=== PATIENT | female | born 1955 | race Caucasian/White ===

== ENCOUNTER 2017-09-24 18:15 | Observation (INO) | payer BC, OTHER ==
[~2017-09-24 18:15] MED LIST: ISOVUE-370 76%-LOCM 1 ML ONE
[2017-09-24 19:08] LABS: Prothrombin Time 13.7 SEC (12.0-14.7)
[2017-09-24 19:18] LABS: #Eosinphils 0.1 thou/uL (0.0-0.7); #Lymphocytes 2.2 thou/uL (1.20-3.40); #Monocytes 0.7 thou/uL (0.11-0.59); #Neutrophils 4.7 thou/uL (1.40-6.50); %Basophils 0.2 % (0.0-1.0); %Eosinophils 1.2 % (0.0-10.0); %Lymphocytes 28.4 % (21.0-51.0); Hematocrit 38.2 % (36.0-47.0); Mean Platelet Volume 9.6 fL (7.4-10.4); Neutrophil 59 % (42-75); Reactive Lymphocytes 9 % (0-10); Red Blood Cell (RBC) Count 4.32 mill/uL (4.20-5.40); White Blood Cell (WBC) Count 7.7 thou/uL (4.8-10.8)
[2017-09-24 19:22] LABS: ALT (SGPT) 14 U/L (8-55); AST (SGOT) 16 U/L (5-34); Alkaline Phosphatase 58 U/L (40-150); Anion Gap 11 mmol/L (10-20); BUN (Urea Nitrogen) 16 mg/dL (9.8-20.1); Bilirubin, Total 0.5 mg/dL (0.2-1.2); Calc. Creatinine Clearance 0 mL/min (70-130); Calcium 9.1 mg/dL (7.8-10.44); Carbon Dioxide 27 mmol/L (23-31); Chloride 107 mmol/L (98-107); Estimated GFR-MDRD 36; Globulin 2.5 g/dL (2.4-3.5); Magnesium 2.2 mg/dL (1.6-2.6); Protein, Total 6.5 g/dL (6.0-8.3)
[2017-09-24 19:27] LABS: Troponin I Less than 0.010 ng/mL (< 0.028)
--- NOTE | 2017-09-24 19:46 | RAD ---
CHEST ONE VIEW: History: Syncope. Comparison: 03-19-13 FINDINGS: The cardiac silhouette is magnified by projection. Pulmonary vasculature is unremarkable. Mediastinum is midline with aortic calcification. There is no lobar consolidation or evidence of pneumothorax. C ardiac monitor leads overlie the chest. IMPRESSION: No active cardiopulmonary abnormalities are demonstrated. POS: [facility]
[2017-09-24 19:48] LABS: Bilirubin Negative (Negative); Blood, Urine Negative (Negative); Glucose, Urine (Dipstick) Negative (Negative); Ketone, Urine Negative (Negative); Nitrite Negative (Negative); Protein, Urine (Dipstick) Negative (Neg-Trace); Urobilinogen 0.2 mg/dL (0.2-1.0)
[2017-09-24 19:50] LABS: Bacteria/HPF Rare-Few HPF (None Seen); Hyaline Casts/LPF 0-3 HYALINE CAST LPF (0-3 Hyaline); RBC/HPF 0-3 HPF (0-3); Squamous Epithelial 0-3 HPF (0-3)
--- NOTE | 2017-09-24 20:05 | CT ---
CT HEAD NONCONTRAST CT ARTERIOGRAM NECK WITH IV CONTRAST AND 3D MIP IMAGING CT ARTERIOGRAM HEAD WITH IV CONTRAST AND 3D MIP IMAGING: History: Left sided sensory defect. Altered mental status. FINDINGS: There is normal branching of the great vessels at the aortic arch with calcification most pronounced at the left subclavian artery. There is mild plaque and calcification at each carotid bifurcation wit hout significant stenosis evident. Good flow is demonstrated into each vertebral artery and each flores tid system. There is no evidence of acute intracranial hemorrhage or infarct. The ventricles appear normal in siz e, shape, and position. There is no mass effect, shift of midline structures or abnormal areas of con trast enhancement. [place] is intact. No vascular filling defects are apparent. IMPRESSION: 1. No acute intracranial abnormalities are demonstrated. 2. Atherosclerosis without significant stenosis evident. POS: [facility]
[2017-09-24] MEDS ORDERED: cefTRIAXone\\ROCEPHIN 2 GM in Sodium Chloride 0.9% 100 ML IVPB SCH (20:30)
[2017-09-24] MEDS ORDERED: Acetaminophen 325 MG TAB PO PRN (21:57)
[2017-09-24] MEDS ORDERED: Acetaminophen 650 MG Suppository PR PRN (21:57)
[2017-09-24] MEDS ORDERED: Zolpidem Tartrate 5 MG TAB PO PRN (21:57)
[2017-09-24] MEDS ORDERED: Ondansetron HCl/PF 4 MG/2 ML Vial IVP PRN (21:57)
[2017-09-24] MEDS ORDERED: Sodium Chloride 0.9% 1,000 ML IV SCH (22:00)
[2017-09-24 22:33] LABS: Troponin I Less than 0.010 ng/mL (< 0.028)
--- NOTE | 2017-09-24 23:43 | HP ---
PRIMARY CARE PHYSICIAN: Dr. Ramírez at [facility]. CHIEF COMPLAINT: Passing out. HISTORY OF PRESENT ILLNESS: Ms. Escobar is a pleasant 62-year-old lady who was seen at [facility] on 09/24/2017. She reportedly had about 20 guests for Thanksgiving today. At so me point during the dinner, she was standing up and she felt that the whole room tilted to one side. She also reportedly passed out. She did not fall down or hit her head because her guests prevented her from falling. She also reports pain under the left scapula, 7/10, nonradiating, no known aggrava ting or relieving factors, not accompanied by nausea or vomiting, which lasted 2 hours. There has be en no recurrence of that pain. She reports left-sided numbness, including the face, still continues to have it. She also reports in termittent occipital headache. Her blood sugars were checked and were found to be 180 range. REVIEW OF SYSTEMS: The following complete review of systems was negative, unless otherwise mentioned in the HPI or below: Constitutional: Weight loss or gain, sense of well-being, ability to conduct usual activities, exerc ise tolerance. Skin/Breast: Rash, itching, changes in hair growth or loss, nail changes, breast lumps, tenderness, swelling, nipple discharge. Eyes: Vision, double vision, tearing, blind spots, pain. ENT/Mouth: Headaches (location, time of onset, duration, precipitating factors), vertigo, lightheade dness, injury. Vision, double vision, tearing, blind spots, pain, nose bleeding, colds, obstruction, discharge, dental difficulties, gingival bleeding, dentures, neck stiffness, pain, tenderness, masses in thyroid or other areas. Cardiovascular: Precordial pain, substernal distress, palpitations, syncope, dyspnea on exertion, or thopnea, nocturnal paroxysmal dyspnea, edema, cyanosis, hypertension, heart murmurs, varicosities, ph lebitis, claudication. Respiratory: Pain, shortness of breath, wheezing, stridor, cough, hemoptysis, fever or night sweats. Gastrointestinal: Poor appetite, dysphagia, indigestion, abdominal pain, heartburn, eructation, naus ea, vomiting, hematemesis, jaundice, constipation, or diarrhea, abnormal stools ([place]ent[place]-colored, tarry, bloody, greasy, foul smelling), flatulence, hemorrhoids, recent changes in bowel habits. Genitourinary: Urgency, frequency, dysuria, nocturia, hematuria, polyuria, oliguria, unusual (or guera nge in) color of urine, stones, hesitancy, change in size of stream, dribbling, acute retention or in continence, libido, potency. Musculoskeletal: Pain, swelling, redness or heat of muscles or joints, limitation, of motion, muscul ar weakness, atrophy, cramps. Neurologic/Psychiatric: Convulsions, paralyses, tremor, incoordination, paresthesias, difficulties w ith memory of speech, sensory or motor disturbances, or muscular coordination (ataxia, tremor), emoti onal problems, anxiety, depression, previous psychiatric care, unusual perceptions, hallucinations. Allergy/Immunologic: Skin rash, anemia, bleeding tendency, polydipsia, polyuria, intolerance to heat or cold. PAST MEDICAL HISTORY: Significant for hypothyroidism, anemia, asthma, dyslipidemia. PAST SURGICAL HISTORY: Significant for cholecystectomy, section, hysterectomy, and tonsille ctomy. PSYCHIATRIC HISTORY: Significant for depression and suicidal ideation after of parents. SOCIAL HISTORY: Occasional alcohol use, no tobacco use or recreational drug use. FAMILY HISTORY: Significant for stroke in her father. ALLERGIES: She is allergic to CODEINE and SULFA. CURRENT MEDICATIONS: Include trazodone 300 mg every evening, Symbicort 1 puff as needed, meloxicam 7 .5 mg daily, simvastatin 40 mg daily, levothyroxine 88 mcg daily, montelukast 10 mg daily, and Xanax as needed. PHYSICAL EXAMINATION: GENERAL: On examination, Ms. Escobar is awake and alert, not in acute distress. VITAL SIGNS: Blood pressure is 142/60, pulse is 70. She is breathing at rate of 17 and saturating 9 7% on room air. She is afebrile. EYES: No scleral icterus, no conjunctival pallor. ENT: Moist mucosal membranes, no oropharyngeal erythema or exudates. NECK: Supple, nontender, normal range of movement, trachea is midline. RESPIRATORY: Accessory muscles of breathing are not active. Chest wall movements are symmetric bila terally. LUNGS: Clear to auscultation without wheeze, rhonchi or crepitations. CARDIOVASCULAR: S1 and S2 are heard, regular. LUNGS: Peripheral pulses are palpable. No carotid bruit, no pericardial rub. ABDOMEN: Soft, nontender, bowel sounds heard, no hepatomegaly, no splenomegaly. NEUROLOGICAL: Diminished sensation over the left side of her face. Cranial nerves II-XII are otherw ise intact. Power is 5/5 in all 4 extremities. Deep tendon reflexes are 2+, plantar reflexes are do wngoing. MUSCULOSKELETAL: Power is 5/5 in all 4 extremities. Normal range of movement at all major extremity joints. PSYCHIATRIC: Normal mood, normal affect, patient is oriented to person, place and time. LYMPHATIC: No cervical lymphadenopathy. SKIN: No rashes or subcutaneous nodules. LABORATORY DATA: Ms. Escobar's labs and investigations were reviewed. I reviewed her electrocardiogr am, which shows normal sinus rhythm, no ST changes to suggest an acute coronary syndrome. I also rev iewed her chest x-ray, which does not show any pulmonary infiltrates. CT angiogram of the head and n barb did not reveal any acute intracranial abnormalities. She has atherosclerosis without significant stenosis. Laboratory investigation showed an unremarkable CBC, normal INR, normal D-dimer, elevated creatinine of 1.48, last known creatinine 1.29 in 03/2013, otherwise normal comprehensive metabolic profile, normal troponin I and normal TSH. Urinalysis is negative for nitrites, but positive for mod erate amount of leukocyte esterase. ASSESSMENT AND PLAN: Ms. Escobar is a pleasant 62-year-old lady who was seen at [facility] on 09/24/2017. Her problem list includes: 1. Syncope: Etiology unclear. We will admit patient to the hospital for further workup. Cardiolog y service will be consulted for their opinion and management, given the possibility of arrhythmia. N eurology service will be consulted as well. 2. Transient ischemic attack: Suspected. The patient continues to have left-sided facial numbness. We will check MRI of the brain as well as 2D echocardiogram. We will continue her on statin. She has received aspirin in the emergency room, which I will continue. 3. Urinary tract infection: Suspected, based on urinalysis. We will continue her on ceftriaxone fo r now. 4. Hypothyroidism: Continue Synthroid. 5. Asthma: Stable, continue her home medications. 6. Dyslipidemia: Continue statins. 7. Left scapular pain: Has resolved, etiology unclear. We will recheck troponin to ensure it does not have atypical presentation of acute coronary syndrome. 8. Chronic kidney disease: Monitor creatinine and electrolytes, hydrate patient for now. Many thanks for allowing me to participate in your patient's care. Please feel free to contact me wi th any questions or concerns. LEVEL OF RISK: High. LEVEL OF COMPLEXITY: High.
[2017-09-24 23:50] VITALS: BMI 30.4
[2017-09-25] MEDS ORDERED: cefTRIAXone\\ROCEPHIN 1 GM, Syringe 0.4 ML in Sterile Water 9.6 ML SLOW IVP SCH ×2 (01:00→22:00)
[2017-09-25 02:03] LABS: Troponin I Less than 0.010 ng/mL (< 0.028)
[2017-09-25 05:25] LABS: #Eosinphils 0.1 thou/uL (0.0-0.7); #Lymphocytes 2.3 thou/uL (1.20-3.40); #Monocytes 0.5 thou/uL (0.11-0.59); #Neutrophils 2.7 thou/uL (1.40-6.50); %Basophils 0.5 % (0.0-1.0); %Eosinophils 2.1 % (0.0-10.0); %Lymphocytes 40.4 % (21.0-51.0); %Monocytes 9.5 % (0.0-10.0); Hematocrit 34.3 % (36.0-47.0); Mean Platelet Volume 9.7 fL (7.4-10.4); Red Blood Cell (RBC) Count 3.85 mill/uL (4.20-5.40); White Blood Cell (WBC) Count 5.7 thou/uL (4.8-10.8)
[2017-09-25] MEDS: Levothyroxine Sodium 88 MCG TAB PO SCH (05:38)
[2017-09-25 05:54] LABS: Anion Gap 10 mmol/L (10-20); BUN (Urea Nitrogen) 15 mg/dL (9.8-20.1); Calc. Creatinine Clearance 61 mL/min (70-130); Calcium 8.3 mg/dL (7.8-10.44); Carbon Dioxide 22 mmol/L (23-31); Chloride 112 mmol/L (98-107); Cholesterol 122 mg/dl (< 200 Desired); Estimated GFR-MDRD 43; LDL Cholesterol, Calculated 63 mg/dL
[2017-09-25] MEDS ORDERED: Enoxaparin Sodium 40 MG/0.4 ML SYRINGE SC SCH (09:00)
[2017-09-25] MEDS ORDERED: Aspirin 325 mg Enteric Coated Tablet PO SCH (09:00)
--- NOTE | 2017-09-25 09:37 | PDOC.PN ---
- Subjective Encounter Start Date: 09/25/17 Encounter Start Time: 09:35 Patient seen at bedside. No overnight events, still having mild left sided facial numbness. - Objective MAR Reviewed: Yes Vital Signs & Weight: Vital Signs (12 hours) Temp Pulse Resp BP BP Pulse Ox 09/25/17 08:27 168/94 H 09/25/17 07:30 97.7 F 67 16 188/104 H 98 09/25/17 03:42 97.8 F 68 20 139/93 H 98 09/24/17 22:52 97.8 F 68 20 162/82 H 97 09/24/17 21:57 97 Weight Weight 188 lb 9.6 oz Result Diagrams: 09/25/17 04:37 09/25/17 04:37 Phys Exam - Physical Examination Constitutional: NAD HEENT: moist MMs Neck: no JVD Respiratory: clear to auscultation bilateral Cardiovascular: RRR Gastrointestinal: soft Musculoskeletal: pulses present, edema present Neurological: moves all 4 limbs decreased left facial sensitivity Psychiatric: A&O x 3 Dx/Plan (1) Transient ischemic attack (TIA) Status: Suspected (2) Hyperlipidemia Code(s): E78.5 - HYPERLIPIDEMIA, UNSPECIFIED Status: Chronic (3) Hypothyroidism Code(s): E03.9 - HYPOTHYROIDISM, UNSPECIFIED Status: Chronic (4) UTI (urinary tract infection) Status: Suspected - Plan cont current plan of care, plan discussed w/ family, continue antibiotics, DVT proph w/SCDs * Continue with ASA (spoke with Dr. Ortez who stated to continue 81mg daily). * Statin * D/C IV Fluids * Rocephin * MRI/Echo * Cardiology consult pending (arrthymogenic?)
--- NOTE | 2017-09-25 09:55 | CON ---
DATE OF CONSULTATION: 09/25/2017 CONSULTING PHYSICIAN: Hospitalist Service IMPRESSION: 1. Probable vertebrobasilar transient ischemic. 2. Hypertension. PLAN: 1. Add aspirin. 2. Continue simvastatin. 3. Echocardiogram. Ms. Escobar is a 62-year-old white female who was at home having Thanksgiving dinner when she suddenly felt like the world was pulling her to the side. She collapsed to the floor and had a brief loss of consciousness. When she awoke, she had some continued sensation of vertigo. She noted that there w as some numbness involving the left face, arm, and leg. She was helped to a chair and subsequently b rought to the emergency room. Her initial CT scan of the brain did not reveal any evidence of hemorr monica. She has been admitted for further evaluation. Her CT angiogram of the [place] did no t reveal any significant areas of stenosis. She denies any past history of similar events. PAST MEDICAL HISTORY: Hypertension, hyperlipidemia. ALLERGIES: CODEINE, MORPHINE, SULFA. MEDICATIONS: Reviewed. SOCIAL HISTORY: No tobacco use. FAMILY HISTORY: Noncontributory. REVIEW OF SYSTEMS: Positive for some intermittent headache. She denies any difficulty swallowing. She is not having any double vision or lateralized weakness. PHYSICAL EXAMINATION: GENERAL: She is a healthy appearing middle-aged woman in no distress. VITAL SIGNS: Blood pressure 168/94, pulse 67, respirations 16, temperature 97.7. HEENT: Pupils equal and reactive. Conjunctivae clear. Oropharynx clear. Cranium normocephalic and atraumatic. NECK: Supple, no lymphadenopathy noted. EXTREMITIES: No cyanosis noted. NEUROLOGIC: She is alert and appropriate. Her speech is fluent and clear. Cranial nerves II-XII ar e intact. Motor exam showed symmetric strength. Sensation was intact to light touch. Plantar respo nses were downgoing. She can walk independently. LABORATORY STUDIES: Unremarkable CBC, coagulation studies, serum chemistry and a urinalysis showed e vidence of a possible urinary tract infection. This is a 62-year-old woman with a history of hypertension who presented with vertigo with transient loss of consciousness, left-sided numbness which could be consistent with basilar transient ischemic attack. I agree with the management. I will be happy to follow up with her as an outpatient.
--- NOTE | 2017-09-25 11:48 | CON ---
DATE OF CONSULTATION: 09/25/2017 REASON FOR CONSULTATION: Syncope. PRIMARY CARE PROVIDER: Dr. Leija HISTORY OF PRESENT ILLNESS: Ms. Escobar is a pleasant 62-year-old woman who recently had a syncopal e pisode. She also had paresthesias noted to the left side of her face and hand. She had no previous episodes in the past. No chest pain or pressure noted. No previous history of u nderlying coronary disease. She is not on negative inotropic medications that may have precipitated the syncopal event. She has been seen and evaluated by Neurology who feel this is more consistent with a TIA. PAST MEDICAL HISTORY: Hypothyroidism, asthma, hyperlipidemia. PAST SURGICAL HISTORY: Cholecystectomy, , hysterectomy, tonsillectomy. SOCIAL HISTORY: No current tobacco or alcohol use. ALLERGIES: CODEINE, SULFA. HOME MEDICATIONS: Trazodone, simvastatin, levothyroxine, Symbicort, Meloxicam and Xanax p.r.n. REVIEW OF SYSTEMS: Ten-point review of systems is reviewed and as above, otherwise negative. PHYSICAL EXAMINATION: VITAL SIGNS: Blood pressure 162/77, pulse 67, temperature 97.7. GENERAL: Patient is a pleasant female who is in no acute distress. The patient appears her stated ag e. NEUROLOGIC: The patient is alert and oriented times 3 with no focal neurologic deficits. HEENT: Sclerae without icterus. Mouth has moist mucous membranes with normal pallor. NECK: No JVD. Carotid upstroke brisk. No bruits bilaterally. LUNGS: Clear to auscultation with unlabored respirations. BACK: No scoliosis or kyphosis. CARDIAC: Regular rate and rhythm with normal S1 and S2. No S3 or S4 noted. No significant rubs, mur murs, thrills, or gallops noted throughout the precordium. PMI is not displaced. There is no parast ernal heave. ABDOMEN: Soft, nontender, nondistended. No peritoneal signs present. No hepatosplenomegaly. No abn ormal striae. EXTREMITIES: 2+ femoral and 2+ dorsalis pedis pulses. No cyanosis, clubbing, or edema. SKIN: No gross abnormalities. PERTINENT LABS: Hemoglobin 11.5, creatinine 1.25. EKG normal sinus rhythm, normal EKG. IMPRESSION: Syncope. RECOMMENDATIONS: Symptoms would certainly suggest a TIA. I would like to rule out dysrhythmia. Wou ld recommend an echo with Doppler in addition a 3-week outpatient event recorder. Would also recomme nd aggressive blood pressure management. She is not on blood pressure medications. We will add wayne nopril 5 mg 1 p.o. now, then increase to 10 mg.
[2017-09-25] MEDS: Lisinopril 5 MG TAB PO SCH (12:50)
[2017-09-25] MEDS ORDERED: Atorvastatin Calcium 20 MG TAB PO SCH (21:00)
[2017-09-25] MEDS ORDERED: traZODone HCl 150 MG TAB PO SCH (21:00)
[2017-09-25] MEDS ORDERED: Atorvastatin Calcium 10 MG TAB PO SCH (21:00)
[2017-09-25] MEDS ORDERED: XANAX PO SCH (21:00)
[2017-09-25] MEDS ORDERED: Montelukast Sodium 10 mg Tablet PO SCH (21:00)
[2017-09-25] MEDS ORDERED: cefTRIAXone\\ROCEPHIN 1 GM in Sodium Chloride 0.9% 100 ML IVPB SCH (22:00)
[2017-09-26] MEDS: Levothyroxine Sodium 88 MCG TAB PO SCH (05:27)
--- NOTE | 2017-09-26 10:10 | PDOC.PN ---
- Subjective Encounter Start Date: 09/26/17 Encounter Start Time: 08:15 Subjective: no further syncopal events on stroke unit -: no chest pain or palp -: had cath done 2 yrs back at [facility] which was normal per pt - Objective MAR Reviewed: Yes Vital Signs & Weight: Vital Signs (12 hours) Temp Pulse Resp BP Pulse Ox 09/26/17 08:12 97.6 F 60 16 09/26/17 07:35 97.6 F 60 16 164/71 H 98 09/26/17 03:41 97.9 F 77 16 123/63 94 L 09/25/17 23:17 98.1 F 70 16 139/59 L 95 Weight Weight 188 lb 3.2 oz Result Diagrams: 09/25/17 04:37 09/25/17 04:37 Phys Exam - Physical Examination HEENT: PERRLA, moist MMs Neck: no JVD, supple Respiratory: no wheezing, no rales Cardiovascular: RRR, no significant murmur Gastrointestinal: soft, non-tender, positive bowel sounds Musculoskeletal: no edema, pulses present Neurological: non-focal, moves all 4 limbs Psychiatric: normal affect, A&O x 3 Dx/Plan (1) Syncope Code(s): R55 - SYNCOPE AND COLLAPSE Status: Acute Qualifiers: Syncope type: unspecified Qualified Code(s): R55 - Syncope and collapse (2) Hyperlipidemia Code(s): E78.5 - HYPERLIPIDEMIA, UNSPECIFIED Status: Chronic Qualifiers: Hyperlipidemia type: unspecified Qualified Code(s): E78.5 - Hyperlipidemia , unspecified (3) Hypothyroidism Code(s): E03.9 - HYPOTHYROIDISM, UNSPECIFIED Status: Chronic Qualifiers: Hypothyroidism type: unspecified Qualified Code(s): E03.9 - Hypothyroidism , unspecified (4) Transient ischemic attack (TIA) Status: Resolved (5) UTI (urinary tract infection) Status: Acute Qualifiers: Urinary tract infection type: acute cystitis Hematuria presence: without hematuria Qualified Code(s): N30.00 - Acute cystitis without hematuria - Plan for MRI today -: may dc home if ok with -: ?event monitor/loop recorder per cardio advice -: cipro for uti -: accurate home med list please, ?xanax dose * . Review of Systems - Medications/Allergies Allergies/Adverse Reactions: Allergies Allergy/AdvReac Type Severity Reaction Status Date / Time codeine Allergy Verified 10/01/13 12:25 morphine Allergy Verified 10/01/13 12:25 Sulfa (Sulfonamide Allergy Verified 10/01/13 12:25 Antibiotics) Medications: Current Medications Acetaminophen (Tylenol) 650 mg PO Q4H PRN PRN Reason: Headache/Fever or Pain Acetaminophen (Tylenol) 650 mg ID Q4H PRN PRN Reason: Headache/Fever or Pain Aspirin (Aspirin Chewable) 81 mg PO DAILY [facility] Last Admin: 09/26/17 08:12 Dose: 81 mg Atorvastatin Calcium (Lipitor) 20 mg PO QPM [facility] Last Admin: 09/25/17 20:12 Dose: 20 mg Ciprofloxacin (Cipro) 500 mg PO 0600,2000 [facility] Levothyroxine Sodium (Synthroid) 88 mcg PO 0600 [facility] Last Admin: 09/26/17 05:27 Dose: 88 mcg Lisinopril (Zestril) 5 mg PO 1200 [facility] Last Admin: 09/25/17 12:50 Dose: 5 mg Montelukast Sodium (Singulair) 10 mg PO QPM [facility] Last Admin: 09/25/17 20:12 Dose: 10 mg Non-Formulary Medication (Xanax) 40 mg PO QPM [facility] Ondansetron HCl (Zofran) 4 mg IVP Q6H PRN PRN Reason: Nausea/Vomiting Trazodone HCl (Desyrel) 300 mg PO QPM [facility] Last Admin: 09/25/17 21:49 Dose: 300 mg Zolpidem Tartrate (Ambien) 5 mg PO HSPRN PRN PRN Reason: Insomnia
--- NOTE | 2017-09-26 11:27 | PDOC.CTH ---
Cardiology Progress Note - Subjective No new issues. - Objective Vital Signs Temp Pulse Resp BP Pulse Ox 09/26/17 08:12 97.6 F 60 16 09/26/17 07:35 97.6 F 60 16 164/71 H 98 09/26/17 03:41 97.9 F 77 16 123/63 94 L Weight 188 lb 3.2 oz - Physical Examination General/Neuro: alert & oriented x3, NAD Neck: no JVD present Lungs: unlabored respirations Heart: RRR Abdomen: NT/ND Extremities: other: (no edema) - Telemetry Telemetry Rhythm: NSR - Labs Result Diagrams: 09/25/17 04:37 09/25/17 04:37 Troponin/CKMB CK-MB (CK-2) 0.9 ng/mL (0-6.6) 09/24/17 18:49 Troponin I Less than 0.010 ng/mL (< 0.028) 09/25/17 01:23 - Assessment/Plan 1. Syncope, 2. Possible TIA PLAN: - Normal LV function with no or LVOT obstruction to explain syncope. - May discharge any time form CV perspective and will need Follow up with Dr. Alva for event monitor set up.
[2017-09-26] MEDS ORDERED: Lisinopril 5 MG TAB PO SCH (12:00)
[2017-09-26 12:07] VITALS: BP 118/71; TEMP 98.3
[2017-09-26] MEDS: Lisinopril 5 MG TAB PO SCH (13:12)
--- NOTE | 2017-09-26 15:33 | MRI ---
MRI OF BRAIN WITHOUT IV CONTRAST 09/26/17 HISTORY: Left sided sensory defect. Altered mental status. COMPARISON: 01/10/10 FINDINGS: There are scattered punctate areas of increased FLAIR and T2 weighted signal intensity in the subcort ical and periventricular white matter, some of which were also present on the prior study in 2009 and are nonspecific but likely reflective of mild chronic vessel ischemic changes. There is no evidence of an acute infarction. Septum pellucidum and third ventricle are in the midline. Ventricular system is normal in size, shape , and position. Appropriate flow voids are demonstrated at the base of the brain. The patient's eyak lenses are not visualized. There is minimal mucosal thickening in the ethmoidal air cells bilaterally. Skull base has a normal MRI appearance aside from likely a small mastoid effus ion on the left. IMPRESSION: 1. No acute intracranial abnormalities demonstrated. 2. Mild chronic small vessel ischemic changes. POS: [facility]
[2017-09-26] MEDS ORDERED: Ciprofloxacin 500 MG TAB PO SCH (20:00)
[2017-09-26] MEDS ORDERED: Metoprolol Tartrate 25 MG TAB PO SCH (21:00)
--- NOTE | 2017-09-26 23:16 | DIS ---
DATE OF ADMISSION: 09/24/2017 DATE OF DISCHARGE: 09/26/2017 DISCHARGE DISPOSITION: To home. PRIMARY DISCHARGE DIAGNOSES: Syncope, resolved. TIA, resolved. SECONDARY DISCHARGE DIAGNOSES: Dyslipidemia, hypothyroidism, urinary tract infection. PROCEDURES DONE DURING HOSPITALIZATION: Patient has had a CT angio of the brain done, which showed no acute intracranial abnormalities. Echo with 2D Doppler showed EF of 60 to 65%. MRI brain, no acute infarct or bleed. Urine culture showed 10 to 25,000 mixed dread, which likely is contaminated. H&H 11 and 34, platelet count is 71, MCV was 89. BUN 15, creatinine 1.25. Total cholesterol 122, triglycerides 141, HDL 31, LDL was 63. Troponin x3 was negative. Liver enzymes were all within normal limits, total bilirubin 0.5, albumin is 4.0. TSH 0.83. Please note, this was done at 6:48 p.m., the TSH levels. UA showed moderate leukocyte esterase with 11 to 20 wbcs with few bacteria. DISCHARGE MEDICATIONS: Aspirin 81 mg p.o. daily, ciprofloxacin 500 mg p.o. twice daily, levothyroxine 88 mcg p.o. daily, lisinopril 5 mg p.o. daily, Lopressor 25 mg p.o. twice daily, simvastatin 40 mg p.o. q.p.m., Singulair 10 mg p.o. q.p.m., trazodone 300 mg p.o. q.p.m. ALLERGIES: CODEINE, MORPHINE, and SULFA. DISCHARGE PLAN: Patient to follow up with primary care physician in 1 week. INPATIENT CONSULTS: Dr. Ortez for Neurology, Dr. Alva for Cardiology. BRIEF COURSE DURING HOSPITALIZATION: Patient initially was brought to emergency room after she passed out at home. This happened while she was standing up and felt that the room was spinning. There were multiple guests at home who held her and she did not sustain any injuries. She also reported left- sided numbness on the face with intermittent occipital headache. In view of this, she was placed on the stroke unit for possible TIA. Also on arrival, her blood pressure was 142/60. She has had a complete syncope workup done during her stay here. Echo has not revealed any gross abnormalities. CT angio brain showed no stenosis or acute infarct or bleed. MRI brain has confirmed the same. She was evaluated by Dr. Ortez for Neurology and Dr. Alva for Cardiology. Dr. Alva's office will be setting up an event monitor at her home. She has been ambulating well with no motor weakness. Telemetry has not revealed any acute arrhythmias. She is hemodynamically and neurologically stable and will be shortly discharged home. Please see a face to face documentation on [facility] for the day of discharge. EBEN
== END 2017-09-26 13:59 | disposition home or self-care (01) ==
LOC: ERS 18:15 → 2SE 21:37
PROVIDERS: ADMIT Internal Medicine; ATTEND Internal Medicine
DX: R55 Syncope and collapse (principal); E78.5 Hyperlipidemia, unspecified; E03.9 Hypothyroidism, unspecified; D64.9 Anemia, unspecified; J45.909 Unspecified asthma, uncomplicated; F32.9 Major depressive disorder, single episode, unspecified; R45.851 Suicidal ideations; M25.512 Pain in left shoulder; N30.00 Acute cystitis without hematuria; G45.9 Transient cerebral ischemic attack, unspecified; Z79.899 Other long term (current) drug therapy; Z88.5 Allergy status to narcotic agent; Z88.2 Allergy status to sulfonamides; Z90.49 Acquired absence of other specified parts of digestive tract; Z90.710 Acquired absence of both cervix and uterus; Z90.89 Acquired absence of other organs; Z98.890 Other specified postprocedural states
CPT/HCPCS: 36415; 36416; 70496; 70498; 70551; 71010; 80048; 80053; 80061; 81003; 81015; 82553; 83605; 83735; 84443; 84484; 85025; 85379; 85610; 87086; 93005; 93306; 96361; 96365; 96372; 96376; A4216; G0378; G8978-GP-CH; G8979-GP-CH; G8980-GP-CH; G8987-GO-CI; G8988-GO-CI; G8989-GO-CI; G8996-GN-CH; G8997-GN-CH; G8998-GN-CH; J0696; J1650; J7050

== ENCOUNTER 2019-05-24 08:32 | Observation (INO) | payer MEDICARE, OTHER ==
--- NOTE | 2019-05-24 09:10 | CT ---
CT Brain WO Con: 05/24/2019 8:48 AM CLINICAL HISTORY: Syncope. IMAGING TECHNIQUE: Multiple CT images were obtained of the brain without IV contrast. COMPARISON: CTA of the head with and without contrast dated September 24, 2017 FINDINGS: Infarct: No acute infarct is demonstrated. There is mild chronic small vessel white matter ischemic change. Hemorrhage: None.. Hydrocephalus: None.. Basal cisterns: Normal.. Cerebral parenchyma: Normal.. Midline shift: None.. Cerebellum: Normal. Brainstem: Normal. OTHER: Calvarium: Intact.. Visualized Paranasal sinuses: There is mild mucosal thickening within the ethmoid air cells.. Extracranial soft tissues:Right parietal scalp contusion IMPRESSION: 1. No acute intracranial abnormality. 2. Mild chronic small vessel white matter ischemic change. 3. Mild paranasal sinus disease 4. Right parietal scalp contusion
[2019-05-24] MEDS ORDERED: Meclizine HCl 25 MG TAB ONE (09:21)
[2019-05-24 09:26] LABS: ALT (SGPT) 12 U/L (8-55); AST (SGOT) 15 U/L (5-34); Albumin 4.1 g/dL (3.4-4.8); Alkaline Phosphatase 59 U/L (40-150); Anion Gap 13 mmol/L (10-20); BUN (Urea Nitrogen) 18 mg/dL (9.8-20.1); Bilirubin, Total 0.5 mg/dL (0.2-1.2); CK (CPK) 22 U/L (29-168); Calc. Creatinine Clearance 0 mL/min (70-130); Carbon Dioxide 24 mmol/L (23-31); Chloride 107 mmol/L (98-107); Estimated GFR-MDRD 51; Globulin 2.6 g/dL (2.4-3.5); Glucose 99 mg/dL (80-115); Lipase 18 U/L (8-78); Potassium 4.6 mmol/L (3.5-5.1); Protein, Total 6.7 g/dL (6.0-8.3); Sodium 139 mmol/L (136-145)
[2019-05-24 09:33] LABS: #Basophils 0.1 thou/uL (0.0-0.2); #Eosinphils 0.1 thou/uL (0.0-0.7); #Lymphocytes 1.5 thou/uL (1.20-3.40); #Monocytes 0.6 thou/uL (0.11-0.59); %Basophils 1.3 % (0.0-1.0); %Eosinophils 1.3 % (0.0-10.0); %Lymphocytes 28.1 % (21.0-51.0); %Monocytes 12.1 % (0.0-10.0); %Neutrophils 57.2 % (42.0-75.0); Hemoglobin 14.3 g/dL (12.0-16.0); Mean Corpuscular Volume 90.7 fL (78.0-98.0); Mean Platelet Volume 10.1 fL (7.4-10.4); Platelet Count 62 thou/uL (130-400); Platelet Morphology Comment Appears Decreased; RBC Distribution Width 12.9 % (11.5-14.5); RBC Morphology Normal; Red Blood Cell (RBC) Count 4.78 mill/uL (4.20-5.40); White Blood Cell (WBC) Count 5.3 thou/uL (4.8-10.8)
--- NOTE | 2019-05-24 09:37 | RAD ---
PORTABLE CHEST 1 VIEW: DATE: 05/24/19 TIME: 0920 hours HISTORY: Syncope. FINDINGS: Comparison made with exam of 09/24/17. The heart size is normal. The aorta is tortuous. No focal areas of consolidation, pneumothoraces, or pleural effusions are seen. IMPRESSION: No radiographic evidence of acute cardiopulmonary process. POS: [facility]
[2019-05-24] MEDS ORDERED: Aspirin Chewable 81 MG TAB ONE (09:39)
[2019-05-24] MEDS ORDERED: Acetaminophen 500 MG TAB ONE (09:42)
[2019-05-24 10:33] LABS: Bilirubin Negative (Negative); Blood, Urine Negative (Negative); Glucose, Urine (Dipstick) Negative (Negative); Leukocyte Negative (Negative); Nitrite Negative (Negative); Protein, Urine (Dipstick) Negative (Neg-Trace); Urobilinogen 0.2 mg/dL (Less than 2)
[2019-05-24 10:34] LABS: Clarity Clear (Clear)
[2019-05-24] MEDS ORDERED: Ondansetron PF 4 MG/2 ML Vial IVP PRN ×2 (13:19→13:54)
[2019-05-24] MEDS ORDERED: Ondansetron ODT 4 MG TAB SL PRN (13:19)
[2019-05-24 13:23] VITALS: BMI 25.5
[2019-05-24] MEDS ORDERED: Ondansetron ODT 4 MG TAB PO PRN (13:54)
[2019-05-24] MEDS: Sodium Chloride 0.9% 1,000 ML IV SCH (15:59)
[2019-05-24] MEDS: Acetaminophen 500 MG TAB PO PRN ×2 (16:07→21:04)
--- NOTE | 2019-05-24 16:29 | ULT ---
BILATERAL CAROTID DUPLEX ULTRASOUND: 05/24/19 HISTORY: 64-year-old female with syncope. TECHNIQUE: Stokes scale ultrasound with color flow and spectral Doppler imaging of the extracranial carotid artery system is performed bilaterally. FINDINGS: Small amount of plaque is seen. The peak systolic velocity in the right ICA measures 101 cm/s with an end diastolic velocity of 26 cm /s and a systolic ratio of 1.16. The peak systolic velocity in the left ICA measures 110 cm/s with an end diastolic velocity of 31 cm/ s and a systolic ratio of 1.01. Flow in both vertebral arteries remains antegrade. IMPRESSION: No evidence of hemodynamically significant stenosis. POS: TPC
--- NOTE | 2019-05-24 16:51 | MRI ---
MRI BRAIN WITHOUT CONTRAST: Date: 05/24/19 HISTORY: Syncope. TIA. Thrombocytopenia. COMPARISON: MRI brain dated 09/26/17. CORRELATION: Earlier exam same date. FINDINGS: Changes of mild chronic small vessel ischemic disease are again seen. No restricted diffusion is iden tified. No evidence of infarct, hemorrhage, midline shift, or abnormal extra-axial fluid collections are seen. The ventricular size is appropriate and the basilar cisterns are patent. There is mucosal d isease in the paranasal sinuses. A small amount of fluid is seen in the left mastoid air cells. IMPRESSION: No evidence of acute intracranial process. POS: TPC
--- NOTE | 2019-05-24 16:58 | HP ---
PRIMARY CARE PROVIDER: Dr. Malloy at [facility]. CHIEF COMPLAINT: Passing out. HISTORY OF PRESENT ILLNESS: This is a 64-year-old female, who presented to [facility] Emergency Department after a syncopal episode at home in her kitchen. The patient states she was preparing coffee at her kitchen counter when she suddenly lost consciousness, striking her head on the kitchen floor. The patient states she blacked out for approximately 15 seconds coming to and crawling to a chair, pulling herself up and notifying her of the fall and passing out. The patient denied any seizure-like activity, bowel or bladder incontinence and the patient's family did not witness any seizure-like activity. The patient had some sensation of the room spinning with some associated nausea. The patient denied any unilateral weakness, difficulty with speech and no reported deficits. The patient states she had a similar episode occur at [facility] in 2017 surrounded by multiple family members. The patient states she underwent extensive workup during the initial syncopal event without specific cause identified. The patient states she recently traveled on vacation returning approximately 3 days prior to this evaluation and was able to ambulate and perform all the activities related to her vacation without difficulty. The patient denied any vertiginous symptoms, recent dental work, nasal congestion, fever, chills, or exposure history. The patient states her only new medication exposure is Biotin over the last 30 days. The patient denies any use of anticoagulation or daily aspirin. In the emergency room, the patient underwent general evaluation including CT imaging of the brain showing no acute intracranial process. Metabolic screening was essentially unremarkable with normal prolactin level. Chest imaging and EKG were unrevealing. The patient received IV fluids x500 mL in addition to Tylenol, aspirin, and meclizine. PAST MEDICAL HISTORY: 1. Syncopal episode, unknown etiology in 2017. 2. Hypothyroidism. 3. Chronic thrombocytopenia. 4. History of asthma. 5. Dyslipidemia. PAST SURGICAL HISTORY: 1. Status post cholecystectomy. 2. Status post section. 3. Status post hysterectomy. 4. Status post tonsillectomy. PAST PSYCHIATRIC HISTORY: Positive for depression and suicidal ideation after the of her parents. CURRENT MEDICATIONS: 1. Levothyroxine 88 mcg p.o. daily. 2. Simvastatin 40 mg p.o. daily. 3. Trazodone 300 mg p.o. at bedtime. 4. Xanax 0.25 mg p.o. daily p.r.n. 5. Singulair 10 mg p.o. daily. ALLERGIES: TO CODEINE, MORPHINE SULFATE, AND SULFA. FAMILY HISTORY: Positive for CVA in her father. SOCIAL HISTORY: The patient is . Resides in [place], [place]. No current alcohol, tobacco, or illicit drug use. REVIEW OF SYSTEMS: CONSTITUTIONAL: Negative for weight loss or gain, ability to conduct usual activities. SKIN: Negative for rash, itching. EYES: Negative for double vision, pain. ENT/MOUTH: Negative for nose bleeding, neck stiffness, pain, tenderness. CARDIOVASCULAR: Negative for palpitations, dyspnea on exertion, orthopnea. RESPIRATORY: Negative for shortness of breath, wheezing, cough, hemoptysis, fever or night sweats. GASTROINTESTINAL: Negative for poor appetite, abdominal pain, heartburn, nausea, vomiting, constipation, or diarrhea. GENITOURINARY: Negative for urgency, frequency, dysuria, nocturia. MUSCULOSKELETAL: Negative for pain, swelling. NEUROLOGIC/PSYCHIATRIC: Negative for anxiety, depression. ALLERGY/IMMUNOLOGIC: Negative for skin rash, bleeding tendency. Otherwise, negative except as stated per HPI. PHYSICAL EXAMINATION: VITAL SIGNS: On admission, blood pressure 130/71, pulse 58, respiratory rate 18, temperature 98.7 degrees Fahrenheit, and O2 saturation 97% on room air. GENERAL APPEARANCE: This is a 64-year-old female, alert and oriented x3, pleasant, responsive, in no acute distress. HEENT: Pupils are equal, round, and reactive to light and accommodation. Extraocular muscles are intact. No scleral icterus. No conjunctival injection. Nares patent. OP is clear. Teeth in good repair. NECK: Supple. No cervical adenopathy. No thyromegaly. No carotid bruits. No JVD appreciated. Cervical spine, full active and passive range of motion. Scalp with mild contusion in the occipital region. CHEST: Lungs are clear to auscultation bilaterally. CARDIOVASCULAR: S1 and S2 without noted murmur, rub, or gallop. ABDOMEN: Rounded, soft, nontender, and nondistended. Bowel sounds are positive in all 4 quadrants. There is no hepatosplenomegaly. No abdominal bruits. No rebound or guarding appreciated. EXTREMITIES: Warm and dry with fair turgor. Minimal edema to the left lower extremity greater than right lower extremity. Pulses palpable distally at the dorsalis pedis, posterior tibial, and popliteal arteries bilaterally. Capillary refill less than 2 seconds. NEUROLOGIC: Cranial nerves II through XII are grossly intact. No focal or lateralizing signs appreciated. PERTINENT LABORATORY AND X-RAY FINDINGS: Complete metabolic profile within normal limits. Prolactin 16.26. Troponin negative x1. CBC showed a white blood cell count of 5.3, hemoglobin 14.3, hematocrit 43, and platelet count 62,000 with 57% neutrophils. D-dimer less than 0.27. Urinalysis negative. Portable chest x-ray dated 05/24/2019, showed no acute cardiopulmonary process. CT of the brain without contrast dated 05/24/2019, showed no acute intracranial process. EKG dated 05/24/2019, by my interpretation shows sinus mechanism with heart rates in the 60s. Normal R-wave progression noted in the precordial leads. Normal axis. No acute ST-T wave changes appreciated. ASSESSMENT AND PLAN: 1. Syncopal episode. The patient will be placed in observation status on the Stroke Unit. Exact etiology unclear. Check orthostatic vital signs. Continue IV fluids with normal saline 100 mL/h. Check MRI of the brain to rule out underlying occult cerebrovascular accident or brain mass. Check carotid Doppler study and 2D transthoracic echocardiogram. Check TSH level. Consider outpatient referral for Neurology evaluation. 2. Hypothyroidism. Check TSH level. Continue levothyroxine 88 mcg daily. 3. Thrombocytopenia, chronic when reviewing electronic medical record. No current evidence to suggest acute blood loss. Repeat CBC in the a.m. 4. Prophylaxis. SCDs while in bed. Pepcid 20 mg p.o. b.i.d. 5. Code status is full. Surrogate medical decision maker is the patient's spouse. Job ID: [id number]
[2019-05-24] MEDS ORDERED: ALPRAZolam 0.5 MG TAB PO PRN (17:01)
[2019-05-24] MEDS ORDERED: Montelukast Sodium 10 mg Tablet PO SCH (21:00)
[2019-05-24] MEDS ORDERED: traZODone HCl 150 MG TAB PO SCH (21:00)
[2019-05-24] MEDS: Meclizine HCl 12.5 MG TAB PO PRN (21:03)
[2019-05-24] MEDS: Benzonatate 100 MG CAP PO SCH (21:03)
[2019-05-24] MEDS: Famotidine 20 MG TAB PO SCH (21:03)
[2019-05-25] MEDS: Sodium Chloride 0.9% 1,000 ML IV SCH ×2 (02:04→11:35)
[2019-05-25 05:18] LABS: Eosinophils 3 % (0-10); Hemoglobin 11.7 g/dL (12.0-16.0); Lymphocytes 54 % (21-51); MDiff Complete? YES; Mean Corpuscular HGB CONC 32.2 g/dL (32.0-36.0); Mean Corpuscular Hemoglobin 29.5 pg (27.0-31.0); Mean Corpuscular Volume 91.5 fL (78.0-98.0); Mean Platelet Volume 10.3 fL (7.4-10.4); Monocytes 9 % (0-10); Neutrophil 34 % (42-75); Platelet Count 65 thou/uL (130-400); Platelet Morphology Comment Appears Decreased; RBC Distribution Width 12.9 % (11.5-14.5); Red Blood Cell (RBC) Count 3.97 mill/uL (4.20-5.40)
[2019-05-25] MEDS ORDERED: Levothyroxine Sodium 88 MCG TAB PO SCH (06:00)
[2019-05-25] MEDS: Meclizine HCl 12.5 MG TAB PO PRN (08:56)
[2019-05-25] MEDS: Benzonatate 100 MG CAP PO SCH (08:56)
[2019-05-25] MEDS: Famotidine 20 MG TAB PO SCH (08:56)
[2019-05-25] MEDS ORDERED: Prevnar 13-Val Conj/PF 0.5 ML SYRINGE IM ONE (09:00)
[2019-05-25] MEDS ORDERED: Aspirin Chewable 81 MG TAB PO SCH (09:00)
[2019-05-25 11:32] VITALS: BP 144/70; TEMP 97.9
--- NOTE | 2019-05-25 20:36 | DIS ---
DATE OF ADMISSION: 05/24/2019 DATE OF DISCHARGE: 05/25/2019 DISCHARGE DIAGNOSES: 1. Syncopal episode, likely secondary to positional vertigo. 2. Positional vertigo. 3. Maxillary sinusitis. 4. Hypothyroidism, stable. 5. Chronic thrombocytopenia, stable. CONSULTATIONS: None. PERTINENT LABORATORY AND X-RAY FINDINGS: Complete metabolic profile within normal limits. TSH 2.57, prolactin level 16.26. CBC showed a white blood cell count ranged between 4.0 to 5.3, hemoglobin ranged between 12 to 14.3. Urinalysis negative. Portable chest x-ray dated 05/24/2019, showed no acute cardiopulmonary process. CT of the brain without contrast dated 05/24/2019, showed no acute intracranial process. Mucosal thickening within the ethmoid air cells noted. Mild chronic small vessel ischemic changes noted. MRI of the brain dated 05/24/2019, showed no acute intracranial process. Chronic small-vessel ischemic changes noted. Mucosal disease in the paranasal sinuses noted. Carotid Doppler study dated 05/24/2019, showed no hemodynamically significant stenosis. HOSPITAL COURSE: The patient was observed on the Stroke Unit after initially presenting status post syncopal episode. The patient underwent extensive evaluation including multiple neuroimaging studies showing no evidence of acute intracranial process or CVA. Telemetry monitoring showed no evidence of acute arrhythmia or dysrhythmia. Metabolic screening was unremarkable, however, the patient was noted with paranasal sinus disease and left mastoid fluid in the air cells. The patient's presentation concerning for positional vertigo and treated with meclizine 25 mg q.8 hours. The patient was given education reassurance and recommended for Ear, Nose, and Throat followup. I have examined the patient at the time of discharge and discussed followup instructions. The patient verbalized understanding and in agreement, ready for discharge on 05/25/2019. DISCHARGE MEDICATIONS: 1. Alprazolam 0.5 mg p.o. at bedtime p.r.n. 2. Tessalon Perles 200 mg p.o. t.i.d. p.r.n. 3. Levothyroxine 88 mcg p.o. daily. 4. Simvastatin 40 mg p.o. at bedtime. 5. Singulair 10 mg p.o. at bedtime. 6. Trazodone 300 mg p.o. at bedtime. 7. Augmentin 500 mg 1 tablet p.o. b.i.d. x10 days. 8. Flonase nasal spray 2 sprays in each naris daily. 9. Meclizine 25 mg p.o. t.i.d. FOLLOWUP: The patient may follow up with her primary care provider, Dr. Sanam Ramírez within 7 days of discharge. The patient may follow up with Dr. Lizabeth Blanca with [facility] and to call his office for appointment time and date. CONDITION ON DISCHARGE: Stable. ACTIVITY: Ad-linda. DIET: Regular. CODE STATUS: Full. DISPOSITION: Home on 05/25/2019. Job ID: [id number]
== END 2019-05-25 14:52 | disposition home or self-care (01) ==
LOC: ERS 08:32 → 2SE 09:58
PROVIDERS: ADMIT Family Medicine; ATTEND Family Medicine
DX: R55 Syncope and collapse (principal); R42 Dizziness and giddiness; J32.0 Chronic maxillary sinusitis; E03.9 Hypothyroidism, unspecified; D69.6 Thrombocytopenia, unspecified; E78.5 Hyperlipidemia, unspecified; J45.909 Unspecified asthma, uncomplicated; F41.9 Anxiety disorder, unspecified; D64.9 Anemia, unspecified; F32.9 Major depressive disorder, single episode, unspecified; Z88.5 Allergy status to narcotic agent; Z88.2 Allergy status to sulfonamides; Z88.8 Allergy status to other drugs, medicaments and biological substances; Z79.899 Other long term (current) drug therapy
CPT/HCPCS: 70450; 70551; 71045; 80053; 81003; 82550; 82962; 83690; 83880; 84146; 84443; 84484; 85007; 85025; 85027; 85379; 93005; 93306; 93880; 96361 ×3; 96374; 99285; G0378 ×2; 36415; 36416; 96360; J2405; J8597

== ENCOUNTER 2024-01-07 12:20 | Outpatient (CLI) | payer MEDICARE, OTHER | END 2024-01-07 12:21 | disposition home or self-care (01) | LOC: BICRAD 12:20 | PROVIDERS: ATTEND Physician Assistant Medical | DX: K92.1 Melena (principal); R19.4 Change in bowel habit | CPT/HCPCS: 74019 ==